=== PATIENT | female | born 1960 | race Caucasian/White ===

== ENCOUNTER → 2023-10-31 10:53 | Outpatient (REF) | payer OTHER, SELFPAY | LOC: WDC 10:53 | PROVIDERS: ATTENDING PHYSICIAN Obstetrics & Gynecology; FAMILY PHYSICIAN Family Medicine | DX: Z12.31 Encounter for screening mammogram for malignant neoplasm of breast (principal) | CPT/HCPCS: 77063; 77067 ==

== ENCOUNTER 2024-09-24 18:06 | Emergency (ER) | payer OTHER, SELFPAY ==
[2024-09-24 18:10] VITALS: BP 138/77
[2024-09-24 18:32] VITALS: BMI 24.0
--- NOTE | 2024-09-24 18:39 | ED.GENMED ---
History of Present Illness
General
Chief Complaint: Allergic Reaction
Source: patient
Exam Limitations: none
Time Seen by Provider: 09/24/24 18:32
Nursing documentation reviewed up to this point in time: agreed with
History of Present Illness
History of Present Illness:
64-year-old female history of bee sting anaphylaxis it sounds like bee sting x 3 to her lower extremity and buttock hour or 2 ago took her EpiPen drove herself here feeling okay no lip swelling no shortness of breath no wheeze states symptoms are
less severe than they were before took no Benadryl or steroids at home
Past History
Past History
ED Past Medical History: Hypercholesterolemia, Hypothyroidism and Other (DM diet controlled)
ED Past Surgical History: Other (partial thyroidectomy, hysterectomy)
Social History
Tobacco: Non-smoker
Alcohol: None
Drug: None
Living: with family
Employment: Employed
Family History
Family History: Other ( n/c)
Review of Systems
Review of Systems
All Other Systems: Not applicable
EENT: Reports no symptoms
Respiratory: Reports no symptoms
Skin: Reports itching
Phy Exam
Physical Exam
Physical Exam:
Physical Exam
General: no apparent distress, not acutely ill
Neck: Normal-sized tongue no wheeze no stridor
Heart: s1/s2 regular rate and rhythm, no murmur. equal radial pulses.
Lungs: no acute respiratory distress. clear bilaterally
Neuro: alert and oriented. no focal neurological deficits
Skin: 2 stings in the left lower
Psychiatric: well kept. interactive and cooperative
Extremities: no edema.
Course
Orders/Labs/Results
Orders:
Orders
09/24/24 18:19
EKG [Electrocardiogram (*1)] Urgent
Reason for Study: Tachycardia
Other Reason for Exam: used epi pen
EKG- Treatment ONCE
09/24/24 19:12
Diphenhydramine [Benadryl] 25 mg PO NOW STA
Vital Signs
Initial and Last Documented VS:
Initial Vital Signs
Temp Pulse Resp BP Pulse Ox
98.5 F 102 20 138/77 98
09/24/24 18:10 09/24/24 18:10 09/24/24 18:10 09/24/24 18:10 09/24/24 18:10
Last Documented Vital Signs
Temp Pulse Resp BP Pulse Ox
98.5 F 95 20 134/75 94
09/24/24 18:10 09/24/24 18:59 09/24/24 18:10 09/24/24 19:01 09/24/24 19:00
MDM/Problems Addressed
Differential Diagnosis Includes:
Bee sting, no signs of anaphylaxis
MDM/Problems Addressed:
Bee sting
Chronic conditions affecting care:
Bee sting
Acute Exacerbation and/or Progression of Chronic Illness:
Bee sting
*Pulse Oximetry
SaO2: 98
Oxygen Mode of Delivery: Room air
Patient hypoxic: no
*EKG
Interpreted by ED Provider?: Yes
Interpretation: normal
Comparison EKG: no comparison EKG present
Heart Rate: 78
Rate: normal
Rhythm: sinus
Ischemia: no ischemia
*Nailer Operator Interpretation
Rate: normal
Interpretation: normal
Rhythm: sinus
*Critical Care Note
Total Time (30-74mins, 75-104mins- exclusive of procedures): Not Applicable
Update Note
Update Note:
Symptoms are mild here, will monitor for any reoccurrence or rebound
7:15 PM update patient remains stable
ED Attending Note
-
Portions of this chart may have been created with voice recognition software.� Occasional wrong word or��sound alike� substitutions may have occurred due to the inherent limitations of voice recognition software.
Discharge Plan
Departure
Patient Disposition: Home (Routine Discharge)
Date of Disposition: 09/24/24
Time of Disposition: 19:14
Patient with high blood pressure during this ER visit?: No
Condition: Good
Discharge Problem:
Accidental bee sting
Prescriptions:
New
epinephrine [EpiPen 2-Albert] 0.3 mg/0.3 mL auto-injector
0.3 mg IM Q5-15M PRN (Reason: anaphylaxis) Qty: 2 0RF
diphenhydramine HCl [Benadryl] 25 mg capsule
25 mg PO Q8H PRN (Reason: itching) Qty: 20 0RF
No Action
simvastatin 40 MG tablet
40 mg PO DAILY
levothyroxine 50 MCG tablet
50 mcg PO DAILY
multivitamin 1 EACH capsule
1 ea PO DAILY
docosahexaenoic acid-epa 1 CAP capsule
1,200 mg PO DAILY
epinephrine [EpiPen] 0.3 MG/0.3/SYRINGE auto-injector
0.3 mg IM .STAT PRN (Reason: allergy) Qty: 1 0RF
Rx Instructions:
Administer in thigh with any signs or symptoms of anaphylaxis as we spoke about and then call 911 and come to the ER immediately
Activity Restrictions/Additional Instructions:
Keep an EpiPen with you when you are outside
Interventions
Interventions:
*Risk Screen - Suicide Last Done: 09/24/24 18:10
*General Assessment Last Done: 09/24/24 18:32
*Neglect/Abuse Screening Last Done: 09/24/24 18:10
*ED- Fall Risk Assessment Last Done: 09/24/24 18:32
*ED COVID-19 Vaccine History Last Done: 09/24/24 18:32
ED- Cardiac Assessment Last Done: 09/24/24 18:32
ED- Pulmonary Assessment Last Done: 09/24/24 18:36
ED-Skin Assessment Last Done: 09/24/24 18:32
Discharge Date and Time
Print Language: NEPALI
[2024-09-24 19:01] VITALS: BP 134/75
[2024-09-24] MEDS: BENADRYL 25 MG PO (19:22)
== END 2024-09-24 19:27 | disposition home or self-care (01) ==
LOC: EMR 18:06
PROVIDERS: EMERGENCY PHYSICIAN Emergency Medicine; FAMILY PHYSICIAN Family Medicine
DX: T63.441A Toxic effect of venom of bees, accidental (unintentional), initial encounter (principal); X58.XXXA Exposure to other specified factors, initial encounter; E78.00 Pure hypercholesterolemia, unspecified; E03.9 Hypothyroidism, unspecified
CPT/HCPCS: 99283; 93005